=== PATIENT | female | born 1980 | race Hispanic/Latino ===

== ENCOUNTER 2025-01-22 19:01 | Emergency (ER) | payer SELFPAY ==
[~2025-01-22] VITALS: Ht 152.4 cm; Wt 93.0 kg
--- NOTE | 2025-01-22 19:58 | ERN ---
ED Note History of Present Illness Stated Complaint: INGOWN NAIL Chief Complaint: Toe Pain/Injury Time Seen by : 19:07 Dictation: This is a 44-year-old female who presented to the emergency room with complaints of right great toe pain and swelling. She stated that she has had ingrown toenail and she trimmed it on the medial side on her own a few weeks ago. She developed swelling on the medial aspect and severe pain and erythema. She apparently took amoxicillin clavulanate on her own for about a week and stopped it as she was going to drink alcohol. In the beginning it appeared that it was improving and she sustained an injury to the right great toe by hitting a friend's boot accidentally. She continues to have the erythema swelling and severe pain and she came in to the ER for further evaluation. So far all these symptoms have been going on for about 3 weeks total. She has not seen any [facility] physician. She stated that she has been taking 800 mg of ibuprofen with some relief. No fever chills or rigors. No pain anywhere else in the foot. Temperature 97.7 pulse 100 respirations 16 blood pressure 122/77 with a pulse oximetry of 96% on room air Patient does not have any routine health care but was diagnosed with gout in the past. Allergies: Coded Allergies: No Known Allergies (Unverified Allergy, Unknown, 01/22/25) Home Meds Active Scripts Ketorolac Tromethamine (Toradol) 10 Mg Tab, 10 MG PO QID for pain for 5 Days, #20 TAB 0 Refills Prov:SILKE NGUYEN MD 01/22/25 Prednisone (Prednisone) 20 Mg Tablet, 1 TAB PO AD for 6 Days, #14 TAB 0 Refills TAKE 1 TAB BY MOUTH THREE TIMES PER DAY X3 DAYS, THEN TAKE 1 TAB BY MOUTH TWICE A DAY X2 DAYS, THEN TAKE 1 TAB BY MOUTH ONCE A DAY X1 DAY. Prov:SIKLE NGUYEN MD 01/22/25 Doxycycline Hyclate (Doxycycline Hyclate) 100 Mg Tablet.dr, 1 TAB PO BID for 10 Days, #20 TAB 0 Refills Prov:SILKE NGUYEN MD 01/22/25 Past Medical History Past Medical History: Other Additional Past Medical Hx: GOUT Surgical History: None Family History: Negative Social History: ETOH RN Note Reviewed/Agreed w/PFSH: Yes Review of System Dictation Constitutional: Negative for fever,chills, and weight loss Eyes: Negative for injury, pain,redness, and discharge ENT: Negative for injury,pain or swelling Cardiovascular: Negative for chest pain, palpitations, and edema Respiratory: Negative for shortness of breath, cough, and wheezing, Abdomen/GI: Negative for abdominal pain, nausea, vomiting, diarrhea, and constipation Back: Negative for injury and pain : Negative for injury, bleeding and discharge MS/Extremity: Negative for injury and deformity positive for right great toe swelling adjacent to the nail with a erythema Skin: Negative for rash, and discoloration Neuro: Negative for headache, weakness, numbness, tingling, and seizure Psych: Negative for suicide ideation, homicidal ideation, and hallucinations Initial Vital Sign VS Vital Signs Date Time Temp Pulse Resp B/P (MAP) Pulse Ox O2 Delivery O2 Flow Rate FiO2 01/22/25 19:02 97.7 100 16 120/77 96 Room Air 0 01/22/25 20:15 21 Physical Exam Dictation General: awake, alert, NAD morbidly obese Head/Face: Normocephalic, atraumatic Eyes: PERRL, EOMI, vision at baseline ENT: oral cavity clear, TMs clear, no signs of infection Neck: Trachea midline, supple, no nuchal rigidity Cardiovascular: RRR, normal S1/S2, No MRGs, no JVD Respiratory: CTAB, no respiratory distress, No rales or wheezes Abdomen: Soft, non-tender, non-distended, normal bowel sounds, no guarding or rebound. Skin: Warm, dry, normal turgor, no rash MS/Extremity: Pulses equal, no cyanosis, neurovascular intact, FROM right great toe medial nail fold is markedly swollen with surrounding erythema. Very tender to touch mild warmth. There was no detachment of the cuticle and no separation of the nail from the nail bed. No discoloration of the nail. Surrounding joints appear normal Neuro: COAx4, GCS 15, strength 5/5, CN 2-12 intact, normal cerebellar exam, normal gait, Psych: Normal behavior, mood, and affect normal Extremities-trace edema without any palpable cords, Homans sign is negative ED Course ED Course Orders Procedure Category Date Status Time Ceftriaxone 1g Vial PHA 01/22/25 Complete (Rocephine 1g Inj) 20:00 Morphine 4mg Syg PHA 10/6/25 Complete (Morphine 4mg Syg) 20:00 Tetanus,Diphtheria PHA 01/22/25 Complete Tox [Adult] (Diphther 20:00 Current Medications Medications (Trade) Dose Ordered Sig/Jasmyne Route PRN Reason Start Time Stop Time Status Last Admin Dose Admin Ceftriaxone Sodium (ROCEphine 1G INJ) 1 gm ONCE ONCE IM 01/22/25 20:00 01/22/25 20:01 DC 01/22/25 20:22 Morphine Sulfate (morPHINE 4MG SYG) 4 mg ONCE ONCE IM 01/22/25 20:00 01/22/25 20:01 DC 01/22/25 20:22 Tetanus/ Diphtheria Toxoids Adsorbed (DiphthERIA-teTANUS TOXOID [ADULT]/ DECAVAC) 0.5 ml ONCE ONCE IM 01/22/25 20:00 01/22/25 20:01 DC 01/22/25 20:24 Vital Signs Date Time Temp Pulse Resp B/P (MAP) Pulse Ox O2 Delivery O2 Flow Rate FiO2 01/22/25 20:15 98.2 92 16 120/75 98 Room Air* 0 21 01/22/25 19:02 97.7 100 16 120/77 96 Room Air 0 We will administer medications according to the patient's complaint. Once the results are available, will review and personally interpreted the labs to rule out any acute life-threatening emergency the trach require immediate intervention and treatment. I will then re-evaluate the patient after treatment and diagnostic exams have return to determine whether the patient requires any further testing, can safely be discharged home or need further admission to hospital for additional treatment and evaluation. Medical Decision Making MDM Differential diagnosis: Acute bacterial paronychia, chronic bacterial paronychia, fungal paronychia, herpetic erin, contact dermatitis, trauma and autoimmune disorders This is a 44-year-old female who presented to the emergency room with complaints of right great toe pain and swelling. She stated that she has had ingrown toenail and she trimmed it on the medial side on her own a few weeks ago. She developed swelling on the medial aspect and severe pain and erythema. She apparently took amoxicillin clavulanate on her own for about a week and stopped it as she was going to drink alcohol. In the beginning it appeared that it was improving and she sustained an injury to the right great toe by hitting a friend's boot accidentally. She continues to have the erythema swelling and severe pain and she came in to the ER for further evaluation. So far all these symptoms have been going on for about 3 weeks total. She has not seen any primary care physician. She stated that she has been taking 800 mg of ibuprofen with some relief. No fever chills or rigors. No pain anywhere else in the foot. Temperature 97.7 pulse 100 respirations 16 blood pressure 122/77 with a pulse o ximetry of 96% on room air Patient does not have any routine health care but was diagnosed with gout in the past. I had a long discussion with the patient and explained to her that this is likely combination of infection of the nail fold secondary to ingrown toenail. As she had injury, it has not healed as expected. Since it has been going on for the past few weeks, I have recommended oral antibiotics and a very low-dose steroid to reduce the inflammation. I also gave a referral to [facility]. Risk of complication and/or morbidity or mortality of patient management: None Medications-Per medication reconciliation Need for hospitalization: Patient does not meet criteria for hospitalization. Need for emergency major/minor surgery: No There are no social concerns with this patient. Prescription drug management Prescriptions will include symptomatic care Patient's prior external medical records from other ER visits were reviewed by me as indicated. Prior testing and results from previous visits were reviewed. Prior tests were taken into account with medical decision making and resource utilization, independent historian/historians were used to obtain complete medical history. Problem List Problem List: (1) Paronychia of great toe of right foot (2) Ingrown right greater toenail DX & DISP Disposition: Discharge Departure Impression: Primary Impression: Paronychia of great toe of right foot Additional Impression: Ingrown right greater toenail Condition: Stable Scripts Ketorolac Tromethamine (Toradol) 10 Mg Tab 10 MG PO QID for pain for 5 Days, #20 TAB 0 Refills Prov: SILKE NGUYEN MD 01/22/25 Prednisone (Prednisone) 20 Mg Tablet 1 TAB PO AD for 6 Days, #14 TAB 0 Refills TAKE 1 TAB BY MOUTH THREE TIMES PER DAY X3 DAYS, THEN TAKE 1 TAB BY MOUTH TWICE A DAY X2 DAYS, THEN TAKE 1 TAB BY MOUTH ONCE A DAY X1 DAY. Prov: SILKE NGUYEN MD 01/22/25 Doxycycline Hyclate (Doxycycline Hyclate) 100 Mg Tablet.dr 1 TAB PO BID for 10 Days, #20 TAB 0 Refills Prov: SILKE NGUYEN MD 01/22/25 Additional Instructions: Patient and the caregiver have been informed of all the diagnostic tests and the imaging conducted during the today's visit to the emergency room and has verbalized understanding of the results I have personally reviewed and interpreted all diagnostic exams performed here in the ER today as well as the vital signs documented by the nursing staff. The patient is now being discharged to home and should follow up with the primary care physician or the specialist as directed by the ER staff. Follow-up with primary care provider in 1 to 2 days. Take medications as directed here in the emergency room. Okay to continue home medications unless otherwise discussed during your visit in the emergency room today. Return to your nearest emergency room if symptoms worsen or if there is no improvement. Call 911 if you need immediate assistance. Take Tylenol or Motrin over-the- counter as needed and if no contraindications are present. Increase oral hydration. A wound culture or urine culture was ordered here in the emergency room department please follow-up with primary care provider and advise them to get repeat ports from our facility. If you had any Osmar wrap/splints that were applied here, please do not remove them until you see your primary care or specialty. Referrals: SELF,REFERRAL (PCP) DEBORAH JAMES DPM, ANURADHA R MD Jan 22, 2025 19:58
[2025-01-22 20:15] VITALS: BP 120/75; PULSE 92; RESP 16; TEMP 98.3; O2SAT 98
[2025-01-22] MEDS ORDERED: KETO10 PO (20:26)
[2025-01-22] MEDS ORDERED: DOXY-252 PO (20:26)
[2025-01-22] MEDS ORDERED: PRED20TA3 PO (20:26)
== END 2025-01-22 20:48 | disposition home or self-care (01) ==
LOC: EDH 19:01
DX: L03.031 Cellulitis of right toe (principal); L60.0 Ingrowing nail; M10.9 Gout, unspecified; E66.01 Morbid (severe) obesity due to excess calories; Z68.41 Body mass index [BMI] 40.0-44.9, adult
CPT/HCPCS: 99284; 90714; 96372 ×2; 90471; J0696; J2270